=== PATIENT | female | born 1970 | race Caucasian/White ===

== ENCOUNTER 2020-01-26 17:53 | Emergency (ER) | payer MEDICARE ==
[~2020-01-26] VITALS: Ht 170.2 cm; Wt 70.0 kg
--- NOTE | 2020-01-26 18:18 | NUR ---
Note undone in EDM - 01/26/20 at [address] [facility] FROM [facility]. LEGAL HOLD BY RN AT [facility] D/T NOT TAKE CARE OF HER SELF. PT WAS SCREAMING ABOUT ONE HOUR CABLE OPERATOR. PT IS AGITATED IN ROOM AT ER. ISAC SI/HI. PT VERBALLY AGGRESIVE TOWARDS RN/EMT. SOCKS/UNDERWEAR/WATER PROVIDED PER REQUEST. BELONGINGS PUT INTO 5 BAGS AND PUT INTO THE LOCKER.
--- NOTE | 2020-01-26 18:28 | NUR ---
[facility] LE[facility] HOLD BY RN AT [facility] D/T NOT TAKING CARE OF HER SELF. 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 PT IS AGITATED IN ROOM AT ER. DENIES SI/HI. PT VERBALLY AGGRESIVE TOWARDS RN/EMT. SOCKS/UNDERWEAR/WATER PROVIDED PER REQUEST. BELONGINGS PUT INTO 5 BAGS AND PUT INTO THE LOCKER. SITTER MONITORING FROM HALLWAY FOR SAFETY. PT AWARE OF URINE SAMPLE.
--- NOTE | 2020-01-26 18:49 | NUR ---
PT PROVIDED URINE SAMPLE AT THIS TIME. UA SENT.
--- NOTE | 2020-01-26 19:01 | NUR ---
Report received from JM Sosa. This RN to assume care.
--- NOTE | 2020-01-26 19:01 | NUR ---
REPORT GIVEN TO MARK ONEAL.
[2020-01-26 19:04] LABS: MEAN CORPUSCULAR HEMOGLOBIN 31.1 pg (27.0-34.8); MEAN CORPUSCULAR HGB CONC 33.5 g/dL (32.4-35.8); MEAN CORPUSCULAR VOLUME 92.8 fL (80-100); PLATELET COUNT 239 x10^3/uL (130-400); RED BLOOD COUNT 4.36 x10^6/uL (3.82-5.3); RED CELL DISTRIBUTION WIDTH 13.3 % (9.6-15.2)
[2020-01-26 19:12] LABS: AMPHETAMINE SCREEN, URINE Negative (Negative); BARBITURATE SCREEN, URINE Negative (Negative); BENZODIAZEPINE SCREEN, URINE Negative (Negative); CANNABINOID SCREEN, URINE Negative (Negative); COCAINE SCREEN, URINE Negative (Negative); METHADONE SCREEN, URINE Negative (Negative); OPIATE SCREEN, URINE Negative (Negative)
[2020-01-26 19:17] LABS: ALANINE AMINOTRANSFERASE 30 U/L (12-78); ALBUMIN 3.2 g/dL (3.4-5.0); ANION GAP 8 mmol/L (5-15); CALCIUM 9.1 mg/dL (8.5-10.1); CHLORIDE 105 mmol/L (98-107)
[2020-01-26 19:19] LABS: ALKALINE PHOSPHATASE 81 U/L (45-117); BILIRUBIN,TOTAL 0.5 mg/dL (0.2-1.0); SALICYLATE LEVEL < 1.7 mg/dL (2.8-20.0); TOTAL PROTEIN 7.1 g/dL (6.4-8.2)
[2020-01-26 20:15] LABS: MD YES
--- NOTE | 2020-01-26 20:20 | NUR ---
Food provided to patient. Patient has no complaints and is calm and cooperative. Sitter outside. Belongings locked in cabinet.
[2020-01-26 20:23] VITALS: BP 128/84
[2020-01-26 20:58] LABS: MICROSCOPIC INDICATED
[2020-01-26 21:01] LABS: CULTURE INDICATED? YES
[2020-01-26 21:14] LABS: <PLATELET ESTIMATE> ADEQUATE; <PLT MORPHOLOGY> NORMAL PLT MORPH; <RBC MORPHOLOGY> NORMAL; BAND#(MANUAL) 0.18 x10^3/uL; BANDS%(MANUAL) 1 % (0-7); EOS#(MANUAL) 0.18 x10^3/uL (0.0-0.4); EOS% (MANUAL) 1 % (1-7); LYMPH#(MANUAL) 3.58 x10^3/uL (1-3.4); LYMPHS% (MANUAL) 20 % (22-44); MONOS#(MANUAL) 1.07 x10^3/uL (0.3-2.7); MONOS% (MANUAL) 6 % (2-9); SEG#(MANUAL) 12.89 x10^3/uL (1.8-6.8); SEGS% (MANUAL) 72 % (42-75)
[2020-01-26] MEDS ORDERED: ONDANSETRON 2MG/ML, 2ML ONE (21:23)
[2020-01-26] MEDS ORDERED: ACETAMINOPHEN 500 MG TABLET ONE (21:24)
--- NOTE | 2020-01-26 21:27 | NUR ---
Patient medically cleared per Dr. Rosales. At this time she is unconcerned about patients WBC count and does not beleive that the urine is the source of patients elevated white count. She will not be starting patient on ABX's for a UTI and states to wait for the urine culture results to see whether patient needs to be started on ABX's.
--- NOTE | 2020-01-26 21:30 | NUR ---
Patient sleeping in [place]. Respirations even and unlabored. Room secured; sitter outside. Belongings locked in cabinet.
--- NOTE | 2020-01-26 21:31 | NUR ---
Desiree from [facility] to look over patient's chart and let us know whether they would like to accept patient.
--- NOTE | 2020-01-26 22:00 | NUR ---
Patients legal hold faxed to [facility] per Desiree's request.
--- NOTE | 2020-01-26 22:12 | NUR ---
Spoke with [facility] to provide more info on patient. Will receive a call back on acceptance.
--- NOTE | 2020-01-26 22:16 | NUR ---
Patient sleeping in [place]. Respirations even and unlabored. Room secured; sitter outside. Belongings locked in cabinet.
--- NOTE | 2020-01-26 22:34 | NUR ---
Desiree from [facility] would like Psych ELEVATOR DISPATCHER to re-evaluate patient in the morning and then they may be able to accept patient tomorrow. Will fax patients packet to other acceptable psych facilities at this time.
--- NOTE | 2020-01-26 22:43 | NUR ---
Patients packet faxed to [facility], [facility], , and [facility] and conformations received. Patient has still not been denied by [facility], but needs to be reassessed by Psych BENDER MACHINE OPERATOR tomorrow before patient can go to [facility] per Desiree.
--- NOTE | 2020-01-26 23:04 | NUR ---
Spoke with Jose Dejesus to provide more info on patient. Will receive a call back on acceptance.
--- NOTE | 2020-01-26 23:19 | NUR ---
Dr. Briana gerardo from [place].
--- NOTE | 2020-01-26 23:22 | NUR ---
Accepted by Bridgett and Dr. Nava from [place]. Will arrange transport now. No need for MTM as patient has Medicare.
--- NOTE | 2020-01-26 23:28 | NUR ---
[facility] transport set up at this time with Leann from [facility]. ETA Midnight.
--- NOTE | 2020-01-26 23:29 | NUR ---
Patient sleeping in [place]. Respirations even and unlabored. Room secured; sitter outside. Belongings locked in cabinet.
--- NOTE | 2020-01-27 | NUR ---
[facility] on scene to transfer patient.
--- NOTE | 2020-01-27 00:06 | NUR ---
Report given to [facility]. Patient transferred via ambulance to [facility].
== END 2020-01-27 00:07 ==
LOC: ED 19:10
DX: F22 Delusional disorders (principal); D72.829 Elevated white blood cell count, unspecified; F23 Brief psychotic disorder; F25.9 Schizoaffective disorder, unspecified; F17.200 Nicotine dependence, unspecified, uncomplicated
CPT/HCPCS: 36415; 71045; 80053; 80307; 81001; 85025; 87086; 99285

== ENCOUNTER 2020-03-13 11:44 | Emergency (ER) | payer MEDICARE, MEDICAID ==
[~2020-03-13] VITALS: Ht 172.7 cm; Wt 74.1 kg
[2020-03-13 11:48] VITALS: BP 143/99
--- NOTE | 2020-03-13 12:05 | NUR ---
IN ROOM TO SEE PT. PT REQUEST FOOD, UNDERWEAR, SODA, AND A PLACE TO SLEEP. PT EDUCATED THAT AT THIS TIME UNABLE TO GIVE FOOD UNTIL PROVIDER SEES PT. PT BEGINS TO YELL PROFANITIES AT THIS RN. PT BECOMES VERBALLY ABUSIVE TOWARDS RN. SECURITY IS CALLED AND RESPONDS TO ROOM
== END 2020-03-13 12:12 | disposition home or self-care (01) ==
LOC: ED 12:05
DX: R52 Pain, unspecified (principal); Z53.21 Procedure and treatment not carried out due to patient leaving prior to being seen by health care provider

== ENCOUNTER 2020-03-17 03:35 | Emergency (ER) | payer MEDICARE, OTHER ==
--- NOTE | 2020-03-17 04:06 | NUR ---
late entry-pt arrived to ed room 16 at 0320 with [facility] pd at her side, for c/o exposure and lab draw requested. see paper charting due to computer downtime.
--- NOTE | 2020-03-17 04:09 | NUR ---
pt resting on [facility], offices x2 at her side, monitors in place, siderails up x2. awaiting lab results
== END 2020-03-17 04:50 | disposition home or self-care (01) ==
LOC: ED 04:01
DX: Z00.00 Encounter for general adult medical examination without abnormal findings (principal)
CPT/HCPCS: 36415; 86706; 86803; 87340; 87806; 99283; G0475